=== PATIENT | male | born 1975 | race Caucasian/White ===

== ENCOUNTER → 2024-09-07 12:53 | Outpatient (REF) | payer OTHER, SELFPAY ==
--- NOTE | 2024-09-07 14:00 | CARDSERVLU ---
Echocardiogram with Lumason completed after protocol screening completed. Allergies verified.
Patent IV site: Right hand metacarpal 22 G PC ,rapid blood return
IV site flushed with 0.9% NaCl pre and post administration.
Diluted bolus method utilized to enhance visualization of ventricular teran.
Total volume given: __4__ mL
Patient tolerated all procedures well without complications.
Heplock D/c ed at 1358, site clear, no redness, no edema. Pressure held for few minutes as pt on anticoagulants, no bleeding. 2x2 applied and taped.
== END ==
LOC: RCS 12:53
PROVIDERS: ATTENDING PHYSICIAN Internal Medicine Cardiovascular Disease
DX: I25.5 Ischemic cardiomyopathy (principal); I50.22 Chronic systolic (congestive) heart failure
CPT/HCPCS: 93306; Q9950